=== PATIENT | male | born 1940 | race Caucasian/White ===

== ENCOUNTER 2017-11-18 22:57 | Inpatient (IN) | payer OTHER, MEDICAID ==
[~2017-11-18] VITALS: Ht 167.6 cm; Wt 65.8 kg
[2017-11-18 23:00] VITALS: BP 177/69
[2017-11-19 05:22] LABS: BASOPHILS % (AUTO) 1.3 % (0.0-2.0); EOSINOPHILS # (AUTO) 0.3 K/uL (0-0.4); EOSINOPHILS % (AUTO) 8.9 % (0.0-4.0); HEMATOCRIT 30.6 % (36-52); HEMOGLOBIN 9.8 g/dL (12.0-18.0); LYMPHOCYTES # (AUTO) 0.8 K/uL (2.0-11.5); LYMPHOCYTES % (AUTO) 25.2 % (20.5-51.1); MEAN CORPUSCULAR HEMOGLOBIN 29 pg (27-31); MEAN CORPUSCULAR HGB CONC 32 g/dL (33-37); MEAN CORPUSCULAR VOLUME 91.5 fL (80-94); MONOCYTES # (AUTO) 0.4 K/uL (0.8-1.0); MONOCYTES % (AUTO) 11.1 % (1.7-9.3); NEUTROPHILS # (AUTO) 1.8 K/uL (1.8-7.7); NEUTROPHILS % (AUTO) 53.5 % (42.2-75.2); PLATELET COUNT (AUTO) 191 K/uL (140-450); RED BLOOD CELL COUNT(AUTO) 3.34 MIL/uL (4.20-6.10); RED CELL DISTRIBUTION WIDTH 16.5 % (11.6-13.7); WHITE BLOOD COUNT (AUTO) 3.3 K/uL (4.8-10.8)
[2017-11-19 05:41] LABS: ALBUMIN 3.2 g/dL (3.4-5.0); ANION GAP 17.1 (8-16); ASPARTATE AMINOTRANSFERASE 11 U/L (15-37); CARBON DIOXIDE 21.3 mmol/L (21-32); CHLORIDE 109 mmol/L (98-107); GLUCOSE 86 mg/dL (74-106); POTASSIUM 5.4 mmol/L (3.5-5.1); SODIUM SERUM 142 mmol/L (136-145); TOTAL BILIRUBIN 0.2 mg/dL (0.0-1.0)
[2017-11-19 05:46] LABS: CREATININE 6.6 mg/dL (0.7-1.3); UREA NITROGEN, BLOOD 73 mg/dL (7-18)
[2017-11-19 05:54] LABS: PROTHROMBIN TIME 10.4 secs (10.8-13.4)
[2017-11-19] MEDS ORDERED: LORazepam 2 MG/ML VIAL IM/IVP PRN (06:05)
[2017-11-19] MEDS ORDERED: ONDANSETRON 4 MG/2 ML VIAL IM/IVP PRN (06:05)
[2017-11-19] MEDS ORDERED: DOCUSATE SODIUM 100 MG GELCAP PO PRN (06:05)
[2017-11-19] MEDS ORDERED: HYDROcodone/APAP 5/325 MG 1 TAB TAB PO PRN (06:05)
[2017-11-19] MEDS ORDERED: MORPHINE SULFATE 2 MG/ML SYR IVP PRN (06:05)
[2017-11-19] MEDS ORDERED: ACETAMINOPHEN 325 MG TAB PO PRN (06:05)
[2017-11-19] MEDS ORDERED: cefTRIAXone 1,000 MG VIAL ONE (06:09)
[2017-11-19] MEDS: NACL 0.9% 1,000 ML IV SCH (06:15)
[2017-11-19 08:00] VITALS: BP 125/69
[2017-11-19 08:54] LABS: CHOL/HDL RATIO 2.8 (1-4.5); FREE T4 (FREE THYROXINE) 1.16 ng/dL (0.76-1.46); MAGNESIUM 1.8 mg/dL (1.8-2.4); PHOSPHORUS 4.3 mg/dL (2.5-4.9); THYROID STIMULATING HORMONE 2.39 uIU/mL (0.34-3.74)
[2017-11-19] MEDS ORDERED: HYDR100T79 PO (09:49)
[2017-11-19] MEDS ORDERED: FERR325E14 PO (09:49)
[2017-11-19] MEDS ORDERED: ASCO500T45 PO (09:50)
[2017-11-19] MEDS ORDERED: CLON0.1T42 PO (09:51)
[2017-11-19] MEDS ORDERED: FERROUS SULFATE 325 MG TABEC PO SCH (10:04)
[2017-11-19] MEDS ORDERED: cloNIDine 0.1 MG TAB PO SCH (10:04)
[2017-11-19] MEDS ORDERED: ASCORBIC ACID 500 MG TAB PO SCH (10:21)
[2017-11-19] MEDS ORDERED: cloNIDine 0.1 MG TAB PO PRN (11:39)
[2017-11-19 12:00] VITALS: BP 96/37
[2017-11-19] MEDS ORDERED: NON-FORMULARY ITEM (Hydralazine HCl (Hydralazine Hydrochloride) 50 MG) PO SCH (13:00)
[2017-11-19] MEDS: hydrALAZINE 25 MG TAB PO SCH ×2 (13:00→17:13)
[2017-11-19 15:15] LABS: APPEARANCE,URINE CLEAR (CLEAR); BILIRUBIN,URINE NEGATIVE (NEGATIVE); BLOOD, URINE NEGATIVE (NEGATIVE); COLOR,URINE YELLOW (YELLOW); LEUKOCYTE ESTERASE ,URINE TRACE (NEGATIVE); NITRITE, URINE NEGATIVE (NEGATIVE); UGLUCOSE NEGATIVE (NEGATIVE)
[2017-11-19 16:00] VITALS: BP 123/56
[2017-11-19 17:01] LABS: RBC,URINE 0-5 (RARE) /HPF (0-5)
[2017-11-19 20:00] VITALS: BP 120/63
[2017-11-19] MEDS: ATORVASTATIN 20 MG TAB PO SCH (20:26)
[2017-11-20] MEDS: NACL 0.9% 1,000 ML IV SCH (06:15)
[2017-11-20 08:00] VITALS: BP 197/79
[2017-11-20 08:09] LABS: T4 (THYROXINE) 8.4 ug/dL (4.5-12.0)
[2017-11-20] MEDS: ECOTRIN 81 MG TABEC PO SCH (09:50)
[2017-11-20] MEDS: ASCORBIC ACID 500 MG TAB PO SCH (09:50)
[2017-11-20] MEDS: FERROUS SULFATE 325 MG TABEC PO SCH (09:50)
[2017-11-20] MEDS: VIT-B COMP/VIT-C/FOLIC ACID 1 TAB PO SCH (09:50)
[2017-11-20] MEDS: hydrALAZINE 25 MG TAB PO SCH ×3 (09:50→17:31)
[2017-11-20 12:00] VITALS: BP 205/74
[2017-11-20] MEDS ORDERED: SODIUM POLYSTYRENE 15 GM/60 ML UDBTL PO SCH (15:00)
[2017-11-20 16:00] VITALS: BP 153/49
[2017-11-20 20:00] VITALS: BP 109/87
[2017-11-20] MEDS: CARVEDILOL 12.5 MG TAB PO SCH (20:11)
[2017-11-20] MEDS: ATORVASTATIN 20 MG TAB PO SCH (20:12)
[2017-11-21 04:00] VITALS: BP 145/50
[2017-11-21 08:00] VITALS: BP 102/62
[2017-11-21] MEDS: CARVEDILOL 12.5 MG TAB PO SCH ×2 (09:00→20:53)
[2017-11-21] MEDS: hydrALAZINE 25 MG TAB PO SCH ×3 (09:00→18:09)
[2017-11-21] MEDS: FERROUS SULFATE 325 MG TABEC PO SCH (09:03)
[2017-11-21] MEDS: ECOTRIN 81 MG TABEC PO SCH (09:03)
[2017-11-21] MEDS: ASCORBIC ACID 500 MG TAB PO SCH (09:03)
[2017-11-21] MEDS: VIT-B COMP/VIT-C/FOLIC ACID 1 TAB PO SCH (09:03)
[2017-11-21 10:50] LABS: EOSINOPHILS # (AUTO) 0.3 K/uL (0-0.4); EOSINOPHILS % (AUTO) 8.6 % (0.0-4.0); HEMATOCRIT 30.3 % (36-52); HEMOGLOBIN 9.8 g/dL (12.0-18.0); LYMPHOCYTES # (AUTO) 0.7 K/uL (2.0-11.5); MEAN CORPUSCULAR HEMOGLOBIN 29 pg (27-31); MEAN CORPUSCULAR HGB CONC 32 g/dL (33-37); MONOCYTES # (AUTO) 0.4 K/uL (0.8-1.0); MONOCYTES % (AUTO) 10.6 % (1.7-9.3); NEUTROPHILS # (AUTO) 2.2 K/uL (1.8-7.7); NEUTROPHILS % (AUTO) 61.8 % (42.2-75.2); PLATELET COUNT (AUTO) 183 K/uL (140-450); RED BLOOD CELL COUNT(AUTO) 3.33 MIL/uL (4.20-6.10); RED CELL DISTRIBUTION WIDTH 16.5 % (11.6-13.7); WHITE BLOOD COUNT (AUTO) 3.6 K/uL (4.8-10.8)
[2017-11-21 11:10] LABS: ANION GAP 16.3 (8-16); CARBON DIOXIDE 18.4 mmol/L (21-32); CHLORIDE 110 mmol/L (98-107); GLUCOSE 192 mg/dL (74-106); MAGNESIUM 1.5 mg/dL (1.8-2.4); PHOSPHORUS 4.2 mg/dL (2.5-4.9); POTASSIUM 4.7 mmol/L (3.5-5.1); SODIUM SERUM 140 mmol/L (136-145)
[2017-11-21 11:13] LABS: CREATININE 6.4 mg/dL (0.7-1.3); UREA NITROGEN, BLOOD 67 mg/dL (7-18)
[2017-11-21] MEDS ORDERED: MAG SULF 2000 MG/WATER PREMIX 50 ML IV ONE (11:50)
[2017-11-21 12:00] VITALS: BP 122/55
[2017-11-21] MEDS ORDERED: diphenhydrAMINE 50 MG/ML VIAL IVP SCH (12:00)
[2017-11-21 12:07] LABS: BILIRUBIN,DIRECT 0.1 mg/dL (0.0-0.3); TOTAL BILIRUBIN 0.3 mg/dL (0.0-1.0)
[2017-11-21] MEDS: MAGNESIUM SULFATE 1GM in DEXTROSE 5% 100 ML PREMIX IV SCH ×2 (14:12→15:08)
[2017-11-21 16:00] VITALS: BP 134/63
[2017-11-21 20:00] VITALS: BP 100/63
[2017-11-21] MEDS: ATORVASTATIN 20 MG TAB PO SCH (20:50)
[2017-11-22] VITALS: BP 115/68
[2017-11-22 04:00] VITALS: BP 100/43
[2017-11-22 06:19] LABS: FOLIC ACID 14.6 ng/mL (>3.0)
[2017-11-22 08:00] VITALS: BP 75/58
[2017-11-22] MEDS: hydrALAZINE 25 MG TAB PO SCH ×2 (09:00→11:06)
[2017-11-22] MEDS: CARVEDILOL 12.5 MG TAB PO SCH (09:00)
[2017-11-22] MEDS ORDERED: CARV12.52 PO (09:54)
[2017-11-22] MEDS ORDERED: NEP PO (09:54)
[2017-11-22] MEDS ORDERED: PROC10I SUBQ (09:54)
[2017-11-22] MEDS ORDERED: ATOR20TA40 PO (09:54)
[2017-11-22] MEDS ORDERED: ASPI-1173 PO (09:54)
[2017-11-22] MEDS: FERROUS SULFATE 325 MG TABEC PO SCH (10:01)
[2017-11-22] MEDS: ASCORBIC ACID 500 MG TAB PO SCH (10:01)
[2017-11-22] MEDS: ECOTRIN 81 MG TABEC PO SCH (10:01)
[2017-11-22] MEDS: VIT-B COMP/VIT-C/FOLIC ACID 1 TAB PO SCH (10:01)
[2017-11-22 12:00] VITALS: BP 114/45
[2017-11-23] MEDS ORDERED: EPOETIN ALFA 10,000 UNITS/ML VIAL SUBQ SCH (09:00)
== END 2017-11-22 15:50 | DRG 682 ==
LOC: MED 22:57 → MTU 11-19 06:01
PROVIDERS: ADMIT General Practice; ATTEND General Practice
PROC: 5A1D70Z Performance of Urinary Filtration, Intermittent, Less than 6 Hours Per Day (ICD-10-PCS; principal; 2017-11-21)
DX: N17.9 Acute kidney failure, unspecified (principal); I50.43 Acute on chronic combined systolic (congestive) and diastolic (congestive) heart failure; K85.90 Acute pancreatitis without necrosis or infection, unspecified; I13.2 Hypertensive heart and chronic kidney disease with heart failure and with stage 5 chronic kidney disease, or end stage renal disease; E44.0 Moderate protein-calorie malnutrition; N39.0 Urinary tract infection, site not specified; N18.6 End stage renal disease; D63.1 Anemia in chronic kidney disease; E87.5 Hyperkalemia; I73.9 Peripheral vascular disease, unspecified; N40.0 Benign prostatic hyperplasia without lower urinary tract symptoms; N20.0 Calculus of kidney; E78.5 Hyperlipidemia, unspecified; E83.42 Hypomagnesemia; I07.1 Rheumatic tricuspid insufficiency; I34.0 Nonrheumatic mitral (valve) insufficiency; I35.1 Nonrheumatic aortic (valve) insufficiency; N28.1 Cyst of kidney, acquired; Z90.49 Acquired absence of other specified parts of digestive tract; Z99.2 Dependence on renal dialysis; Z91.15 Patient's noncompliance with renal dialysis; Z91.19 Patient's noncompliance with other medical treatment and regimen; Z79.899 Other long term (current) drug therapy; Z68.23 Body mass index [BMI] 23.0-23.9, adult
CPT/HCPCS: 36415; 71045; 76770; 80048; 80053; 80076; 81001; 82140; 82150; 82607; 82728; 82746; 83036; 83540; 83690; 83735; 83880; 84100; 84134; 84436; 84439; 84443; 84479; 84484; 85025; 85045; 85610; 85730; 87040; 87081; 87086; 93005; 93925; 93970; 96365; 97116; 97162; 97530; 99285; J0696; J7030; Q0092